=== PATIENT | female | born 1975 | race Caucasian/White ===

== ENCOUNTER 2025-05-24 00:42 | Emergency (ER) | payer MEDICAID ==
[~2025-05-24] VITALS: Ht 152.4 cm; Wt 66.6 kg
[2025-05-24 01:21] VITALS: O2SAT 98
[2025-05-24] MEDS ORDERED: TOPUD PO (02:43)
[2025-05-24] MEDS: ACETAMINOPHEN 325MG TABLET PO ONE (03:11)
[2025-05-24] MEDS: KETOROLAC 15MG/ML VIAL IM ONE (04:05)
[2025-05-24 04:07] VITALS: BP 119/79; PULSE 71; RESP 16; TEMP 36.6; O2SAT 98
== END 2025-05-24 04:10 | disposition home or self-care (01) ==
LOC: ER 00:42
DX: M25.512 Pain in left shoulder (principal); M25.511 Pain in right shoulder; R51.9 Headache, unspecified; J45.909 Unspecified asthma, uncomplicated; M43.6 Torticollis; Z88.0 Allergy status to penicillin; W19.XXXA Unspecified fall, initial encounter; Y93.89 Activity, other specified; Y92.89 Other specified places as the place of occurrence of the external cause; Y99.8 Other external cause status
CPT/HCPCS: 99285; 70450; 81025; 72125; 96372; J1885